=== PATIENT | male | born 1960 | race Caucasian/White ===

== ENCOUNTER 2023-12-22 10:07 | Inpatient (IN) | payer OTHER ==
[~2023-12-22] VITALS: Ht 162.6 cm; Wt 90.7 kg
[2023-12-22 10:28] VITALS: BP_SYST 162; PULSE 78; RESP 18; TEMP 98.1; O2SAT 98
[2023-12-22 11:27] LABS: BASOPHILS # (AUTO) 0.1 K/uL (0.0-0.2); BASOPHILS % (AUTO) 0.9 % (0.0-2.0); EOSINOPHILS % (AUTO) 0.9 % (0.0-4.0); HEMATOCRIT 40.7 % (36-54); HEMOGLOBIN 13.9 g/dL (14.0-18.0); LYMPHOCYTES # (AUTO) 1.5 K/uL (1.0-5.5); LYMPHOCYTES % (AUTO) 26.1 % (20.5-51.5); MEAN CORPUSCULAR HEMOGLOBIN 32 pg (27-31); MEAN CORPUSCULAR HGB CONC 34 % (32-36); MEAN CORPUSCULAR VOLUME 93 fL (79.0-98.0); MONOCYTES # (AUTO) 0.5 K/uL (0.0-1.0); NEUTROPHILS # (AUTO) 3.6 K/uL (1.8-7.7); NEUTROPHILS % (AUTO) 63.1 % (40.0-70.0); PLATELET COUNT (AUTO) 311 K/uL (130-430); RED CELL DISTRIBUTION WIDTH 13.5 % (9.0-15.0); WHITE BLOOD COUNT (AUTO) 5.7 K/uL (4.8-10.8)
[2023-12-22] MEDS ORDERED: DIPHTH,PERTUSS(ACELL),TET VAC 0.5 ML VIAL (Tdap) I.M. ONE (11:30)
[2023-12-22 11:33] LABS: ANION GAP 8 (5-15); CALCIUM 8.8 mg/dL (8.4-11.0); CARBON DIOXIDE 27 mmol/L (23-29); CHLORIDE 101 mmol/L (98-107); CREATININE 0.87 mg/dL (0.55-1.30); GFR AFRICAN AMERICAN 113 mL/min (>90); GLUCOSE 107 mg/dL (74-106); POTASSIUM 4.2 mmol/L (3.5-5.1); SODIUM SERUM 136 mmol/L (136-145); UREA NITROGEN, BLOOD 20 mg/dL (8-21)
[2023-12-22 11:36] LABS: PROTHROMBIN TIME 10.6 SECS (9.5-12.5)
[2023-12-22 11:43] LABS: GFR NON AFRICAN-AMERICAN 94 mL/min (>90)
[2023-12-22] MEDS ORDERED: DOXE50CA4 PO (11:57)
[2023-12-22] MEDS ORDERED: MIRT45TA83 PO (11:57)
[2023-12-22] MEDS ORDERED: MELO15TA13 PO (11:57)
[2023-12-22] MEDS ORDERED: CLOB60CR TP (11:57)
[2023-12-22] MEDS ORDERED: EMOL473L2 TP (11:57)
[2023-12-22] MEDS ORDERED: LORA1TAB PO (11:57)
[2023-12-22] MEDS ORDERED: ENAL-77 PO (11:57)
[2023-12-22] MEDS ORDERED: CHOL500052 PO (11:57)
[2023-12-22] MEDS ORDERED: ATEN-167 PO (11:57)
[2023-12-22] MEDS ORDERED: ARIP15TA19 PO (11:57)
[2023-12-22] MEDS ORDERED: QUET400T PO (11:57)
[2023-12-22] MEDS ORDERED: QUET200T PO (11:57)
[2023-12-22] MEDS ORDERED: AMPICILLIN SODIUM/SULBACTAM NA 3 GM VIAL ONE ×3 (12:41→22:30)
[2023-12-22] MEDS: AMPICILLIN SODIUM/SULBACTAM NA 3 GM in NS 100 ML IV SCH (12:59)
[2023-12-22] MEDS ORDERED: fentaNYL CITRATE/PF 100 MCG/2 ML AMP ONE (18:11)
[2023-12-22] MEDS ORDERED: MIDAZOLAM HCL 5 MG/5 ML VIAL ONE (18:12)
[2023-12-22] MEDS ORDERED: LORazepam 1 MG TABLET PO SCH (18:15)
[2023-12-22] MEDS ORDERED: NS IRRIG SOLN 1000 ML IR ONE (18:15)
[2023-12-22] MEDS ORDERED: BUPIVACAINE /PF 0.25% 30 ML VIAL INJ ONE (18:15)
[2023-12-22] MEDS ORDERED: LR 1,000 ML IV.SOLN IV ONE (18:15)
[2023-12-22] MEDS ORDERED: PROPOFOL 200MG/ 20ML VIAL (DIPRIVAN) IV ONE (18:15)
[2023-12-22] MEDS ORDERED: LIDOCAINE 1% 10 MG/ML, 20 ML MDV ONE (18:15)
[2023-12-22] MEDS ORDERED: HYDROmorphone 1 MG/ML INJ. CARTRIDGE IVP PRN (19:45)
[2023-12-22] MEDS ORDERED: MORPHINE 4 MG INJ. 4 MG/ML VIAL IVP PRN ×2 (19:45)
[2023-12-22] MEDS ORDERED: ONDANSETRON HCL 4 MG/2 ML VIAL IVP PRN (19:45)
[2023-12-22] MEDS ORDERED: CEPH250C PO (19:49)
[2023-12-22 21:00] VITALS: O2SAT 96
[2023-12-22] MEDS: MELOXICAM 7.5 MG TABLET PO SCH (21:51)
[2023-12-22] MEDS: QUEtiapine FUMARATE 100 MG TABLET PO SCH ×2 (21:51→21:52)
[2023-12-22] MEDS: MIRTAZAPINE 15 MG TABLET PO SCH (21:51)
[2023-12-22] MEDS: DOXEPINE (SINEQUAN) 25 MG CAP PO SCH (21:52)
[2023-12-23 00:04] VITALS: BP_SYST 98; PULSE 69; RESP 16; TEMP 96.9; O2SAT 77
[2023-12-23] MEDS ORDERED: ATENOLOL 50 MG TABLET (TENORMIN) PO SCH (09:00)
[2023-12-23] MEDS ORDERED: lisinopriL 20 MG TABLET PO SCH (09:00)
[2023-12-23] MEDS ORDERED: ENALAPRIL MALEATE (VASOTEC) Non-Formular 10 MG TABLET PO SCH (09:00)
[2023-12-23] MEDS ORDERED: ARIPiprazole 5 MG TAB PO SCH (09:00)
[2023-12-23] MEDS ORDERED: CEPHALEXIN 250 MG/5 ML, 100 ML BTL PO SCH ×2 (12:00)
== END 2023-12-23 00:35 | disposition home or self-care (01) | DRG 514 ==
LOC: SED 10:07 → SMU 11:26
PROVIDERS: ADMIT Internal Medicine; ATTEND Internal Medicine
PROC: 0PSV04Z Reposition Left Finger Phalanx with Internal Fixation Device, Open Approach (ICD-10-PCS; principal; 2023-12-22 18:22)
DX: S62.617B Displaced fracture of proximal phalanx of left little finger, initial encounter for open fracture (principal); I10 Essential (primary) hypertension; G80.9 Cerebral palsy, unspecified; W18.39XA Other fall on same level, initial encounter; Z79.899 Other long term (current) drug therapy; Z91.81 History of falling; Y93.89 Activity, other specified; Y92.89 Other specified places as the place of occurrence of the external cause; Y99.8 Other external cause status
CPT/HCPCS: 36415; 71045; 76000; 80048; 84484; 85025; 85610; 90715; 93005; 96365; 99285; J0295; J2001; J2250; J2704; J3010; J3490; J7120